=== PATIENT | male | born 1985 | race Caucasian/White ===

== ENCOUNTER → 2016-08-25 | Outpatient (CLI) | payer OTHER ==
--- NOTE | 2016-08-25 14:26 | CT ---
EXAMINATION TYPE: CT abdomen pelvis wo con DATE OF EXAM: 08/25/2016 2:16 PM COMPARISON: NONE HISTORY: 30-year-old male Microscopic hematuria, complaining of bladder pain. CT DLP: 1136.2 mGycm. Automated exposure control for dose reduction was used. TECHNIQUE: Contiguous axial scanning of the abdomen and pelvis without IV contrast. Coronal and sagit farida reconstructions performed. FINDINGS: Heart is normal size without pericardial effusion. Lung bases clear without pleural effusion. Noncontrast appearance of the liver, gallbladder, adrenal glands, left kidney, spleen, and pancreas s how no gross abnormality. There is mild right-sided pelvic caliectasis which may be a transient basis. Punctate 2 mm nonobstruc tive right lower pole renal calculus is noted. No suspicious calcification along the course of either ureter. No dilated small bowel, free fluid, or free air. Scattered prominent mesenteric lymph nodes measuring up to 6 mm. Probably reactive/post inflammatory. Surgical material along the right lower quadrant from prior appendectomy. Scattered mild stool throughout the colon without pericolonic inflammatory change. Bladder is partially urine distended. Some central prostatic calcifications are noted as well as pelv ic phleboliths. No bladder calculus is seen. Rectum appears normal. No abnormal fluid collection in t he pelvis or pelvic lymphadenopathy. Bones: No osseous destructive process. There is disc/endplate degenerative change at L5-S1. IMPRESSION: 1. PUNCTATE NONOBSTRUCTIVE 2 MM RIGHT LOWER POLE RENAL CALCULUS. 2. THERE IS MILD RIGHT-SIDED PELVICALIECTASIS WHICH MAY BE TRANSIENT OR COULD REFLECT A RECENTLY PASS ED STONE. NO SUSPICIOUS CALCIFICATION CURRENTLY SEEN ALONG THE URINARY TRACT. 3. SURGICAL MATERIAL SUGGESTING PRIOR APPENDECTOMY.
== END ==
LOC: RADCTMAIN 13:51
PROVIDERS: ATTEND Family Medicine
DX: N20.0 Calculus of kidney (principal); N28.89 Other specified disorders of kidney and ureter
CPT/HCPCS: 74176

== ENCOUNTER → 2016-11-08 | Outpatient (CLI) | payer OTHER ==
--- NOTE | 2016-11-08 13:01 | XR ---
Left knee HISTORY: [place] soler disease, left knee pain 3 views of the left knee, no comparisons Bone mineralization, joint spaces and alignment are maintained. No evident joint effusion. IMPRESSION: No fracture or dislocation is evident.
== END ==
LOC: RADXRMAIN 10:19
PROVIDERS: ATTEND Physician Assistant
DX: M92.52 Juvenile osteochondrosis of tibia tubercle (principal)

== ENCOUNTER → 2017-01-19 | Outpatient (CLI) | payer OTHER ==
--- NOTE | 2017-01-19 10:56 | CT ---
EXAMINATION TYPE: CT abdomen pelvis wo con DATE OF EXAM: 01/19/2017 HISTORY: Suprapubic pain for 4 days, possible kidney stone CT DLP: 2165 mGycm. Automated Exposure Control for Dose Reduction was Utilized. TECHNIQUE: CT scan of the abdomen and pelvis is performed without oral or IV contrast. COMPARISON: CT abdomen and pelvis August 25, 2016 FINDINGS: Within the limitations of a non-contrast study, the following observations are made. LUNG BASES: No significant abnormality is appreciated. LIVER/GB: No significant abnormality is appreciated. PANCREAS: No significant abnormality is seen. SPLEEN: No significant abnormality is seen. ADRENALS: No significant abnormality is seen. KIDNEYS: No renal stones or hydronephrosis is evident bilaterally. No intraluminal calculus and bladd er is present. BOWEL: Evaluation bowel is suboptimal secondary to lack of enteric contrast. There is no suspicious s mall or large bowel dilatation seen. Surgical sutures from appendectomy are seen at base of cecum. GENITAL ORGANS: Central zone calcification is seen in prostate gland. Adjacent pelvic phleboliths are noted. LYMPH NODES: No greater than 1cm abdominal or pelvic lymph nodes are appreciated. OSSEOUS STRUCTURES: Multilevel spurring in thoracic spine is present. Spur disc lumbosacral junction is noted. OTHER: No significant additional abnormality is seen. IMPRESSION: No renal stones or hydronephrosis is seen bilaterally. No significant acute finding is se en to account for patient's symptoms. Results communicated to ordering physician internal medicine physician assistant via telephone at time of dictation as requested. A Document Only message has been documented for Zbigniew Shay MD in the [employer] system on 01/19/2017 10:53 AM, Message ID [id number].
== END | disposition home or self-care (01) ==
LOC: RADCTMAIN 10:13
PROVIDERS: ATTEND Family Medicine
DX: N20.0 Calculus of kidney (principal)
CPT/HCPCS: 74176; 80053; 85025

== ENCOUNTER → 2017-03-07 | Outpatient (CLI) | payer OTHER ==
--- NOTE | 2017-03-07 21:59 | MR ---
EXAMINATION TYPE: MR knee LT wo con DATE OF EXAM: 03/07/2017 9:49 PM COMPARISON: NONE HISTORY: Left Knee pain with some Swelling x1 year TECHNIQUE: Multiplanar, multisequence imaging of the left knee is performed. FINDINGS: MEDIAL MENISCUS: Anterior and posterior horns are intact without tear. 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 LATERAL MENISCUS: Anterior and posterior horns are intact without tear. CRUCIATE LIGAMENTS: The anterior and posterior cruciate ligaments are intact and unremarkable. COLLATERAL LIGAMENTS: The medial collateral ligament and lateral collateral ligament complex are intact and unremarkable. EXTENSOR MECHANISM: Visualized quadriceps and patellar tendons are intact. EFFUSION: No evidence for joint effusion. POPLITEAL CYST: No popliteal/joseph cyst. TRICOMPARTMENT SPACES: The tricompartment joint spaces appear within normal limits. CARTILAGE: The articular cartilage is maintained without abnormal signal or full-thickness defect. BONE MARROW SIGNAL: No focal abnormal marrow signal is appreciated: OTHER: No additional significant abnormality is appreciated. IMPRESSION: 1. No evidence for meniscal tear. Myxoid degeneration posterior horn medial meniscus.
== END | disposition home or self-care (01) ==
LOC: RADMRIMAIN 21:13
PROVIDERS: ATTEND Family Medicine
DX: M23.322 Other meniscus derangements, posterior horn of medial meniscus, left knee (principal)

== ENCOUNTER → 2017-04-23 | Outpatient (CLI) | payer OTHER ==
--- NOTE | 2017-04-23 14:27 | XR ---
EXAMINATION TYPE: XR foot limited RT DATE OF EXAM: 04/23/2017 CLINICAL HISTORY: Right heel pain with no known injury TECHNIQUE: Frontal, lateral, and oblique images of the right foot are obtained. COMPARISON: None FINDINGS: There is no acute fracture/dislocation evident in the right foot. The joint spaces in the right appear within normal limits. The overlying soft tissue appears unremarkable. Marginal osteoph ytes are seen of the distal interphalangeal joints of the right foot. No evidence of joint space narr owing or sclerosis although flexion of the distal interphalangeal joints makes evaluation limited. Overall, circumscribed area of increased density is seen within the calcaneus measuring 1.0 cm. This may relate to a small bone island or other etiology but is overall nonaggressive appearing. IMPRESSION: 1. There is no acute fracture or dislocation in the right foot. 2. Nonaggressive appearing osseous calcaneal lesion measuring 1.0 cm. This could relate to benign bon e island. Given the patient's heel pain CT could be performed for further delineation of the margins.
== END ==
LOC: RADXRMAIN 13:59
PROVIDERS: ATTEND Family Medicine
DX: M79.9 Soft tissue disorder, unspecified (principal)

== ENCOUNTER 2017-09-26 09:34 | Emergency (ER) | payer OTHER ==
[2017-09-26 09:49] VITALS: BP 153/75; PULSE 75; RESP 18; TEMP 98.2
--- NOTE | 2017-09-26 10:12 | ED ---
General Adult HPI - General Chief complaint: Fall Stated complaint: Knee and back pain Time Seen by Provider: 09/26/17 10:02 Source: patient, RN notes reviewed Mode of arrival: ambulatory Limitations: no limitations - History of Present Illness Initial comments: 32-year-old male presents to the emergency department with a chief complaint of fall. Patient was walking on the ice he slipped and fell. Patient states he has pain to the right knee in the low back. Patient states he did not hit his head. Patient states that his knee seemed to flare out to the side and he landed on his lower back. He states that his pain is moderate and worse to movement. Patient states that he has been able to ambulate following the fall and he didn't get up by himself. He was concerned due to his continued discomfort so he thought that he should be seen. Patient denies any recent fever , chills, shortness of breath, chest pain, back pain, abdominal pain, nausea vomiting, numbness or tingling, dysuria or hematuria, constipation or diarrhea, headaches or visual changes, or any other current symptoms. - Related Data Previous Rx's Medication Instructions Recorded Ibuprofen [Motrin] 600 mg PO Q6HR PRN #20 tab 09/26/17 Allergies Allergy/AdvReac Type Severity Reaction Status Date / Time Sulfa (Sulfonamide Allergy Unknown Verified 09/26/17 09:57 Antibiotics) Childhood Review of Systems ROS Statement: Those systems with pertinent positive or pertinent negative responses have been documented in the HPI. ROS Other: All systems not noted in ROS Statement are negative. Past Medical History Additional Past Medical History / Comment(s): back pain History of Any Multi-Drug Resistant Organisms: None Reported Past Surgical History: Orthopedic Surgery Additional Past Surgical History / Comment(s): back discectomy, maninder knee and right elbow and sinus surgery Past Psychological History: No Psychological Hx Reported Smoking Status: Former smoker Past Alcohol Use History: Rare Past Drug Use History: None Reported General Exam Limitations: no limitations General appearance: alert, in no apparent distress ENT exam: Present: normal exam, mucous membranes moist Neck exam: Present: normal inspection. Absent: tenderness, meningismus, lymphadenopathy Respiratory exam: Present: normal lung sounds bilaterally. Absent: respiratory distress, wheezes, rales, rhonchi, stridor Cardiovascular Exam: Present: regular rate, normal rhythm, normal heart sounds. Absent: systolic murmur, diastolic murmur, rubs, gallop, clicks Extremities exam: Present: normal inspection, full ROM, normal capillary refill. Absent: tenderness, pedal edema, joint swelling, calf tenderness Back exam: Present: normal inspection, full ROM. Absent: tenderness, muscle spasm, paraspinal tenderness, vertebral tenderness, rash noted Neurological exam: Present: alert, oriented X3 Psychiatric exam: Present: normal affect, normal mood Skin exam: Present: warm, dry, intact, normal color. Absent: rash Course Vital Signs 09/26/17 09:47 Temperature 98.2 F Pulse Rate 75 Respiratory 18 Rate Blood Pressure 153/75 O2 Sat by Pulse 100 Oximetry Medical Decision Making - Medical Decision Making 32-year-old male presents with chief complaint of slip and fall. This time exam is benign with no acute finding. X-rays have been reviewed. At this time patient's x-rays do not show any acute fractures. We did give him FOLLOW-UP WITH DUE TO HIS HISTORY OF KNEE INJURY IN THE PAST TO HIS RIGHT KNEE WE DISCUSSED CLOSE FOLLOW-UP WITH HER ORTHOPEDIC DOCTORS. WE DID DISCUSS ALL QUESTIONS. WE DID GIVE THE PATIENT TORADOL INJECTION FOR PAIN. WE DISCUSSED RETURN PARAMETERS AND FOLLOW-UP. THE PATIENT IS IN AGREEMENT THIS PLAN ALL QUESTIONS HAVE BEEN ANSWERED. HE WILL BE DISCHARGED. - Radiology Data Radiology results: report reviewed, image reviewed Disposition Clinical Impression: Right knee sprain, Fall, Lumbar contusion, Degenerative disc disease Disposition: HOME SELF-CARE Condition: Stable Instructions: Knee Sprain (ED) Additional Instructions: Please use medication as discussed. Please follow up with family doctor if symptoms have not improved over the next two days. Please return to the emergency room if your symptoms increase or worsen or for any other concerns. Prescriptions: Ibuprofen [Motrin] 600 mg PO Q6HR PRN #20 tab PRN Reason: Pain Referrals: Zbigniew Shay MD [Primary Care Provider] - 1-2 days Sarath Cordova MD [STAFF PHYSICIAN] - 1-2 days Time of Disposition: 10:47
--- NOTE | 2017-09-26 10:40 | XR ---
EXAMINATION TYPE: 3 views lumbar spine. 3 views right knee DATE OF EXAM: 09/26/2017 COMPARISON: NONE HISTORY: 32-year-old male with pain after slip and fall, history of right knee arthroscopy and recons truction in 2006 and low back discectomy in 2008. FINDINGS: Lumbar spine: 5 lumbar type vertebral bodies. There is moderate degenerative disc interspace narrowing at L5-S1 and mild at additional levels. Degenerative disc disease also seen in the lower thoracic spine. Alignmen t is maintained and vertebral body heights are preserved. Facet degenerative changes lower lumbar spi ne. Right knee: Small knee joint effusion. Degenerative spurring in the patellofemoral compartment. No acute fracture , subluxation, or dislocation seen. 2 cortical screw fixation anteriorly at the region of the tibial tuberosity. Extensor mechanism appears grossly intact. IMPRESSION: 1. Lumbar spine: Mild to moderate degenerative disc disease, greatest in the lower thoracic spine and L5-S1. No vertebral compression collapse or malalignment. 2. Right knee: 2 screws anteriorly in the region of the tibial tuberosity may reflect prior realignme nt of the extensor mechanism. There is a small knee joint effusion which is nonspecific and mild oste oarthrosis of the patellofemoral compartment. No acute osseous abnormality seen. If concern for inter nal derangement, MRI can be performed.
== END 2017-09-26 10:52 | disposition home or self-care (01) ==
LOC: EC 09:34
DX: S83.91XA Sprain of unspecified site of right knee, initial encounter (principal); S30.0XXA Contusion of lower back and pelvis, initial encounter; M51.37 Other intervertebral disc degeneration, lumbosacral region; Z87.891 Personal history of nicotine dependence; Z88.2 Allergy status to sulfonamides; W01.0XXA Fall on same level from slipping, tripping and stumbling without subsequent striking against object, initial encounter; Y92.481 Parking lot as the place of occurrence of the external cause; Z98.890 Other specified postprocedural states
CPT/HCPCS: 72100; 99283

== ENCOUNTER → 2018-10-09 | Outpatient (CLI) | payer OTHER ==
--- NOTE | 2018-10-09 13:55 | XR ---
Right foot HISTORY: Trauma and pain 3 views of the right foot correlated to prior right foot dated 04/23/2017 Bone mineralization, joint spaces and alignment are stable, bone island present within the calcaneus. There is erosion at the distal third metatarsal, marginal spurring as on prior exam. Some degenerati ve changes are present at the intertarsal joints as on prior. No acute fracture or dislocation. IMPRESSION: No acute abnormality
== END | disposition home or self-care (01) ==
LOC: RADXRMAIN 12:18
PROVIDERS: ATTEND Midwife
DX: M79.671 Pain in right foot (principal)